=== PATIENT | male | born 1945 | race Caucasian/White ===

== ENCOUNTER 2021-07-14 14:14 | Outpatient (CLI) | payer MEDICARE, OTHER ==
--- NOTE | 2021-07-14 16:55 | XRAY Report ---
PROCEDURE: Tib/Fib RT INDICATIONS: R LOWER LEG PX TECHNIQUE: 2 views of the tibia and fibula were acquired. COMPARISON: None FINDINGS: Bones: No fractures or dislocations. No suspicious bony lesions. 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 Soft tissues: No suspicious soft tissue calcifications or masses. IMPRESSION: Degenerative change at the knee and ankle. No evidence acute bony abnormality of the right tibia and fibula. Reviewed by: Rod Lindsay MD on 07/14/2021 4:54 PM PDT Approved by: Rod Lindsay MD on 07/14/2021 4:54 PM PDT Station ID: [id number]
== END 2021-07-14 14:15 | disposition home or self-care (01) ==
LOC: DI.N 14:14
PROVIDERS: ATTEND Physician Assistant
DX: S89.91XA Unspecified injury of right lower leg, initial encounter (principal); M79.661 Pain in right lower leg